=== PATIENT | male | born 1955 | race Caucasian/White ===

== ENCOUNTER 2018-08-22 12:50 | Emergency (ER) | payer OTHER ==
[~2018-08-22] VITALS: Ht 152.4 cm; Wt 78.5 kg
[2018-08-22 12:56] VITALS: Ht 152.4 cm; Wt 78.5 kg
[2018-08-22 14:40] VITALS: BP 133/76
== END 2018-08-22 14:41 | disposition home or self-care (01) ==
LOC: ED 12:50
DX: H66.93 Otitis media, unspecified, bilateral (principal)
CPT/HCPCS: J0696

== ENCOUNTER 2019-03-01 20:16 | Emergency (ER) | payer OTHER ==
[~2019-03-01] VITALS: Ht 152.4 cm; Wt 78.5 kg
[2019-03-01 20:26] VITALS: Ht 152.4 cm; Wt 78.5 kg
[2019-03-01 22:02] VITALS: BP 121/57
== END 2019-03-01 22:02 | disposition home or self-care (01) ==
LOC: ED 20:16
DX: R04.0 Epistaxis (principal); R11.10 Vomiting, unspecified

== ENCOUNTER 2019-03-05 05:48 | Emergency (ER) | payer OTHER ==
[~2019-03-05] VITALS: Ht 152.4 cm; Wt 81.6 kg
[2019-03-05 07:23] VITALS: BP 105/69
== END 2019-03-05 07:23 | disposition home or self-care (01) ==
LOC: ED 05:48
DX: R04.0 Epistaxis (principal)

== ENCOUNTER 2019-03-08 06:08 | Emergency (ER) | payer OTHER ==
[~2019-03-08] VITALS: Ht 152.4 cm; Wt 77.1 kg
[2019-03-08 07:07] VITALS: BP 122/70
== END 2019-03-08 07:07 | disposition home or self-care (01) ==
LOC: ED 06:08
DX: R04.0 Epistaxis (principal); Z48.00 Encounter for change or removal of nonsurgical wound dressing